=== PATIENT | female | born 1960 | race Caucasian/White ===

== ENCOUNTER 2017-01-15 12:54 | Emergency (ER) | payer OTHER ==
[2017-01-15 13:00] VITALS: TEMP 98
[2017-01-15] MEDS ORDERED: Sodium Chloride 0.9% 1,000 ML IV STA (13:34)
--- NOTE | 2017-01-15 13:48 | ED PDOC ---
Arrival/HPI - General Chief Complaint: Back Pain Time Seen by Provider: 01/15/17 13:04 Historian: Patient - History of Present Illness Narrative History of Present Illness (Text): 01/15/17 13:50 56 year old female, presents to the emergency department complaining of intermittent dizziness with a spinning sensation multiple times associated with nausea. Patient reports to have felt unsteady when walking as if she was going to fall. She has had these symptoms on and off for many years additional to chronic headaches associated with chronic sinus congestions for many years. Patient also complains of lower back pain that worsens with movement and sitting up and also left leg and bilateral ankle pain, also for many years. She reports to never had imagining done before and when she went to a physician in [place] he said the pain was muscular and never did a workup. Patient denies any fever, chills, chest pain, shortness of breath, vomiting, diarrhea, urinary symptoms, neck pain, or any other complaints. PMD: None Symptom Onset: Gradual Symptom Course: Unchanged Activities at Onset: Light Context: Work Past Medical History - Provider Review Nursing Documentation Reviewed: Yes - Infectious Disease Hx of Infectious Diseases: None - Psychiatric Hx Substance Use: No - Surgical History Hx Gastric Bypass Surgery: Yes - Anesthesia Hx Anesthesia: Yes Hx Anesthesia Reactions: No Family/Social History - Physician Review Nursing Documentation Reviewed: Yes Family/Social History: No Known Family HX Smoking Status: Never Smoked Hx Alcohol Use: No Hx Substance Use: No Allergies/Home Meds Allergies/Adverse Reactions: Allergies No Known Allergies Allergy (Verified 01/15/17 12:56) Home Medications: Home Meds Medication Instructions Recorded Confirmed Esomeprazole Magnesium [Nexium 1 tab PO DAILY 01/15/17 01/15/17 24Hr] Review of Systems - Physician Review All systems were reviewed & negative as marked: Yes - Review of Systems Constitutional: absent: Fevers, Other (Chills) ENT: Sinus Congestion (Chronic congestion ) Respiratory: absent: SOB Cardiovascular: absent: Chest Pain Gastrointestinal: Nausea. absent: Diarrhea, Vomiting Genitourinary Female: absent: Dysuria, Frequency, Hematuria Musculoskeletal: Back Pain, Other (left leg and bilaterial ankle pain). absent : Neck Pain Neurological: Headache, Dizziness Physical Exam Vital Signs Reviewed: Yes Vital Signs Temp Pulse Resp BP Pulse Ox 01/15/17 17:00 73 18 143/81 100 10/15/17 15:00 73 18 136/89 100 01/15/17 12:59 98.0 F 84 20 136/89 98 Temperature: Afebrile Blood Pressure: Normal Pulse: Regular Respiratory Rate: Normal Appearance: Positive for: Well-Appearing, Non-Toxic, Other (obese Welsh female) Pain Distress: Mild Mental Status: Positive for: Alert and Oriented X 3 - Systems Exam Head: Present: Atraumatic, Normocephalic Pupils: Present: PERRL Extroacular Muscles: Present: EOMI Conjunctiva: Present: Normal Ears: Present: Normal, NORMAL TM, Normal Canal. No: Erythema Mouth: Present: Moist Mucous Membranes Pharnyx: Present: Normal. No: ERYTHEMA, EXUDATE Neck: Present: Normal Range of Motion Respiratory/Chest: Present: Clear to Auscultation, Good Air Exchange. No: Respiratory Distress, Accessory Muscle Use Cardiovascular: Present: Regular Rate and Rhythm, Normal S1, S2. No: Murmurs Abdomen: Present: Normal Bowel Sounds. No: Tenderness, Distention, Peritoneal Signs Back: Present: Paraspinal Tenderness (Tenderness to palpation bilaterally ), Other (Tenderness ro palpation in the midlumbar spinal region) Upper Extremity: Present: Normal Inspection. No: Cyanosis, Edema Lower Extremity: Present: Normal Inspection, Other (proximal aspect to the left fibula tenderness lateral malleoli, Tenderness bilateral to ankles ). No: Edema Neurological: Present: GCS=15, CN II-XII Intact, Speech Normal, Motor Func Grossly Intact Skin: Present: Warm, Dry, Normal Color. No: Rashes Psychiatric: Present: Alert, Oriented x 3, Normal Insight, Normal Concentration Medical Decision Making ED Course and Treatment: 01/15/17 13:51 Impression: 56 year old male presents complaining of dizziness associated with nausea with additional halfway symptoms of headache, chronic congestion, lower back pain worsen with movement, and left leg and bilateral ankle pain. Plan: -- Brain CT -- Sinuses CT -- EKG -- Ankle Complete 3 Views X-ray -- Ankle Left 3 Views X-ray -- Ankle Right 3 View X-ray -- Tibia Fibula Left X-ray -- Urinalysis -- Labs -- Antivert -- IV Fluids -- Toradol -- Zofran Inj -- Reassess and disposition Progress Notes: EKG shows NSR at 82 BPM with PAC. Normal intervals, normal axis. No ST/T changes. Interpreted by me. PROCEDURE: CT chest dated Dictated: Eric Melton MD Report Date : 01/15/2017 17:06:53 IMPRESSION: There are scattered bilateral upper and lower lobe ground-glass opacities. Rule out air trapping. Rule out pneumonitis. Early mild interstitial edema should be at considered. Atelectatic and or scarring changes both lung bases left greater than right including the left lingular region PROCEDURE: Radiographs of the left tibia and fibula. Dictated: Eric Melton MD Report Date : 01/15/2017 17:25:24 IMPRESSION: No definitive evidence of acute displaced fracture nor dislocation. If symptoms persist or occult fracture suspected clinically consider follow-up radiographs of the left knee. DJD left knee as above PROCEDURE: CT scan sinuses Dictated: Eric Melton MD Report Date : 01/15/2017 15:26:37 IMPRESSION: No evidence of acute sinusitis. Minor mucosal thickening noted within a few ethmoid air cells extending slightly into the inferior margins of the frontal sinuses. Sinus drainage pathways patent PROCEDURE: CT HEAD WITHOUT CONTRAST. Dictated: Eric Melton MD Report Date : 01/15/2017 15:22:54 IMPRESSION: No acute intracranial hemorrhage. . Mild generalized volume loss with more localized moderate bilateral superior frontal cortical atrophic changes. Mild mucosal thickening within the ethmoid and frontal sinuses as detailed above. 01/15/17 18:02 Workup in the ED with no acute findings. EKG is normal and blood work is unremarkable. She reports significant improvement in symptoms with the meds given. She will be ok for d/c on nsaid, muscle relaxant, and meclizine to f/u in the medical clinic. - Lab Interpretations Lab Results: 01/15/17 13:50 01/15/17 13:50 Lab Results 01/15/17 14:00: Urine Color Yellow, Urine Appearance Clear, Urine pH 6.0, Ur Specific [place] 1.020, Urine Protein Negative, Urine Glucose (UA) Negative, Urine Ketones Negative, Urine Blood Negative, Urine Nitrate Negative, Urine Bilirubin Negative, Urine Urobilinogen 0.2, Ur Leukocyte Esterase Negative 01/15/17 13:50: Sodium 144, Potassium 4.3, Chloride 108 H, Carbon Dioxide 25, Anion Gap 15, BUN 19, Creatinine 0.7, Est GFR ( Amer) > 60, Est GFR (Non- Af Amer) > 60, Random Glucose 91, Calcium 9.1, Magnesium 2.1, Total Bilirubin 0.5, AST 23, ALT 25, Alkaline Phosphatase 86, Lactate Dehydrogenase 440, Total Creatine Kinase 42, Troponin I < 0.01, NT-Pro-B Natriuret Pep 33.3, Total Protein 7.2, Albumin 4.3, Globulin 2.8, Albumin/Globulin Ratio 1.5, Lipase 98 01/15/17 13:50: PT 10.6, INR 0.98, APTT 26.4 01/15/17 13:50: WBC 7.3, RBC 4.89, Hgb 12.7, Hct 39.8, MCV 81.4, MCH 26.0, MCHC 31.9, RDW 13.4, Plt Count 259, MPV 11.0, Gran % 48.4 L, Lymph % (Auto) 41.8 H, Gregory % (Auto) 6.8 H, Eos % (Auto) 2.3, Baso % (Auto) 0.7, Gran # 3.55, Lymph # 3.1, Gregory # 0.5, Eos # 0.2, Baso # 0.05 I have reviewed the lab results: Yes - RAD Interpretation Radiology Orders: 01/15/17 13:32 Brain [HEAD W/O CONTRAST] [CT] Stat 01/15/17 13:35 SINUSES W/O CONTRAST [CT] Stat 01/15/17 13:36 ANKLE COMPLETE 3 VIEWS BI [RAD] Stat TIBIA FIBULA LEFT [RAD] Stat 01/15/17 15:11 LUMBAR SPINE W/O CONTRAST [CT] Stat - EKG Interpretation Interpreted by ED Physician: Yes Type: 12 lead EKG - Medication Orders Current Medication Orders: Discontinued Medications Baclofen (Lioresal) 10 mg PO ONCE STA Stop: 01/15/17 15:12 Last Admin: 01/15/17 15:37 Dose: 10 mg Sodium Chloride (Sodium Chloride 0.9%) 1,000 mls @ 999 mls/hr IV .Q1H1M STA Stop: 01/15/17 14:34 Last Admin: 01/15/17 14:14 Dose: 999 mls/hr eMAR Start Stop Document 01/15/17 14:14 CNR (Rec: 01/15/17 14:14 CNR [id number] Intravenous Solution Start Date 01/15/17 Start Time 14:14 Ketorolac Tromethamine (Toradol) 30 mg IVP STAT STA Stop: 01/15/17 13:36 Last Admin: 01/15/17 14:14 Dose: 30 mg MAR Pain Assessment Document 01/15/17 14:14 CNR (Rec: 01/15/17 14:15 CNR [id number] Pain Reassessment Is this a pain reassessment? Yes Sleep Is patient sleeping during reassessment? No Presence of Pain Presence of Pain Yes Pain Scale Used Pain Scale Used Numeric Location Upper or Lower Lower Pain Location Body Site Back Description Description Constant IVP Administration Document 01/15/17 14:14 CNR (Rec: 01/15/17 14:15 CNR [id number] Charges for Administration # of IVP Administrations 1 Meclizine HCl (Antivert) 25 mg PO STAT STA Stop: 01/15/17 13:35 Last Admin: 01/15/17 14:14 Dose: 25 mg Ondansetron HCl (Zofran Inj) 4 mg IVP STAT STA Stop: 01/15/17 13:36 Last Admin: 01/15/17 14:15 Dose: 4 mg IVP Administration Document 01/15/17 14:15 CNR (Rec: 01/15/17 14:15 CNR [id number]) Charges for Administration # of IVP Administrations 1 - Scribe Statement The provider has reviewed the documentation as recorded by the Scribdavid Resendiz All medical record entries made by the Gregibdavid were at my direction and personally dictated by me. I have reviewed the chart and agree that the record accurately reflects my personal performance of the history, physical exam, medical decision making, and the department course for this patient. I have also personally directed, reviewed, and agree with the discharge instructions and disposition. Disposition/Present on Arrival - Present on Arrival Any Indicators Present on Arrival: No History of DVT/PE: No History of Uncontrolled Diabetes: No Urinary Catheter: No History of Decub. Ulcer: No History Surgical Site Infection Following: None - Disposition Have Diagnosis and Disposition been Completed?: Yes Diagnosis: Vertigo, Low back pain, Bilateral ankle pain, Leg pain, Spondylosis Disposition: HOME/ ROUTINE Disposition Time: 17:20 Patient Plan: Discharge Condition: GOOD Discharge Instructions (ExitCare): Meniere Disease (ED), Vertigo (ED), Lumbar Spinal Stenosis (ED), Neck Exercises (GEN), Degenerative Disc Disease (ED), Back Exercises (ED) Additional Instructions: Take the medications as prescribed. Follow up with the medical clinic. Return to the emergency department if any new concerning symptoms. Prescriptions: Baclofen [Lioresal] 1 cap PO TID PRN #20 tab PRN Reason: Pain, Moderate (4-7) Meclizine HCl 1 tab PO Q8H PRN #30 tablet PRN Reason: Dizziness Naproxen [Naprosyn] 500 mg PO BID PRN #30 tab PRN Reason: Pain Referrals: [facility] [Outside] - Follow up with primary Forms: [facility] (Martiniquais)
[2017-01-15 14:06] LABS: BASO # 0.05 K/mm3 (0.0-2.0); BASO % 0.7 % (0.0-3.0); EOS # 0.2 (0.0-0.7); EOS % 2.3 % (1.5-5.0); GRAN # 3.55 (1.4-6.5); GRAN % 48.4 % (50.0-68.0); HEMATOCRIT 39.8 % (36.0-48.0); LYMPH # 3.1 (1.2-3.4); LYMPH % 41.8 % (22.0-35.0); MEAN CELL VOLUME 81.4 fl (80.0-105.0); MEAN CORPUSCULAR HGB CONC 31.9 g/dl (31.0-37.0); MONO # 0.5 (0.1-0.6); MONO % 6.8 % (1.0-6.0); RED CELL DISTRIBUTION WIDTH 13.4 % (11.5-14.5); WHITE BLOOD COUNT 7.3 10^3/ul (4.5-11.0)
[2017-01-15 14:15] LABS: URINE BILIRUBIN NEGATIVE (NEGATIVE); URINE BLOOD NEGATIVE (NEGATIVE); URINE GLUCOSE (UA) NEGATIVE (NEGATIVE); URINE KETONE NEGATIVE (NEGATIVE); URINE PROTEIN NEGATIVE mg/dL (<30 mg/dL); URINE UROBILINOGEN 0.2 E.U./dL (<1 E.U./dL)
[2017-01-15 14:16] LABS: URINE APPEARANCE CLEAR (CLEAR); URINE COLOR YELLOW (YELLOW); URINE LEUKOCYTE ESTERASE NEGATIVE Leu/uL (NEGATIVE)
[2017-01-15 14:18] LABS: INR 0.98 (0.93-1.08); PARTIAL THROMBOPLASTIN TIME 26.4 Seconds (23.7-30.8)
[2017-01-15 14:23] LABS: ALB/GLOB RATIO 1.5 (1.1-1.8); ALKALINE PHOSPHATASE 86 U/L (38-126); ALT/SGPT 25 U/L (7-56); AST/SGOT 23 U/L (14-36); BILIRUBIN,TOTAL 0.5 mg/dL (0.2-1.3); BLOOD UREA NITROGEN 19 mg/dL (7-21); CALCIUM 9.1 mg/dL (8.4-10.5); CARBON DIOXIDE 25 mmol/L (21-33); CHLORIDE 108 mmol/L (98-107); GFR AFRICAN-AMERICAN > 60; GLUCOSE,RANDOM 91 mg/dL (70-110); LIPASE 98 U/L (23-300); MAGNESIUM 2.1 mg/dL (1.7-2.2); POTASSIUM 4.3 mmol/L (3.6-5.0); SODIUM 144 mmol/L (132-148); TOTAL PROTEIN 7.2 g/dL (5.8-8.3)
[2017-01-15 14:36] LABS: TROPONIN I < 0.01 ng/mL
[2017-01-15 15:04] VITALS: PULSE 73; RESP 18; O2SAT 100
--- NOTE | 2017-01-15 15:24 | CT ---
PROCEDURE: CT HEAD WITHOUT CONTRAST. HISTORY: dizzy COMPARISON: Comparison made with concurrent CT scan of the sinuses. TECHNIQUE: Axial computed tomography images were obtained through the head/brain without intravenous contrast. Radiation dose: Total exam DLP = 775.01 mGy-cm. This CT exam was performed using one or more of the following dose reduction techniques: Automated exposure control, adjustment of the mA and/or kV according to patient size, and/or use of iterative reconstruction technique. FINDINGS: HEMORRHAGE: No acute parenchymal, subarachnoid or extra-axial hemorrhage. Hemorrhage. BRAIN: No evidence of large acute infarct. No obvious parenchymal nor extra-axial mass or collection identified on this noncontrast study. Mild generalized volume loss with more localized moderate bilateral superior frontal cortical atrophic changes. VENTRICLES: No evidence of obstructive hydrocephalus. CALVARIUM: Unremarkable. PARANASAL SINUSES: No fluid levels seen to suggest acute sinusitis. The Mild mucosal thickening seen within the ethmoid sinuses extending superiorly into the inferior margins of the frontal sinus. MASTOID AIR CELLS: Unremarkable as visualized. No inflammatory changes. OTHER FINDINGS: None. IMPRESSION: No acute intracranial hemorrhage. . Mild generalized volume loss with more localized moderate bilateral superior frontal cortical atrophic changes. Mild mucosal thickening within the ethmoid and frontal sinuses as detailed above.
--- NOTE | 2017-01-15 15:28 | CT ---
PROCEDURE: CT scan sinuses dated 01/15/2017 HISTORY: Headache, dizzy, sinus congestion COMPARISON: Correlation made with concurrent CT scan brain TECHNIQUE: Total exam DLP = 281.33 mGy-cm. FINDINGS: Mild mucosal thickening seen within several anterior superior ethmoid air cells extending superiorly into the inferior margins of the frontal sinus. The remaining sinuses are relatively clear. No fluid levels seen to suggest acute sinusitis. Ostiomeatal complexes, frontal and sphenoid ethmoidal recesses are patent Osseous structures appear intact with no sclerotic or destructive changes. Orbits and contents unremarkable. Incidental note made of what appears represent partially empty sella IMPRESSION: No evidence of acute sinusitis. Minor mucosal thickening noted within a few ethmoid air cells extending slightly into the inferior margins of the frontal sinuses. Sinus drainage pathways patent.
--- NOTE | 2017-01-15 16:59 | CT ---
PROCEDURE: CT Lumbar Spine without contrast HISTORY: low back pain, leg pain COMPARISON: No prior study available for comparison TECHNIQUE: Axial computed tomography images were obtained of the lumbar spine without the use of intravenous contrast. Coronal and sagittal reformatted images were created and reviewed. Radiation dose: Total exam DLP = 973.26 mGy-cm. This CT exam was performed using one or more of the following dose reduction techniques: Automated exposure control, adjustment of the mA and/or kV according to patient size, and/or use of iterative reconstruction technique. FINDINGS: VERTEBRAE: Current study reveals no acute compression fractures nor retropulsed fragments. Vertebral bodies exhibit normal stature. Vertebral bodies and facets normally aligned. DISCS/SPINAL CANAL/NEURAL FORAMINA: L1-2: Disc space height maintained. No disc herniation however some very minimal asymmetric broad-based disc bulge results some flattening the ventral surface of the thecal sac more so on the right. . Facets are slightly prominent. Central canal and exit foramina adequate. . L2-3: Mild disc space narrowing with small broad-based disc bulge ridge complex that results some flattening of the ventral surface of thecal sac. Facet joints are slightly prominent. Central canal and exit foramina appear adequate. . L3-4: Mild disc space narrowing with small broad-based disc ridge complex also results in flattening of the ventral surface of the thecal sac. Some minimal extension into the proximal inferior margins of both exit foramina more so on the left. Facets slightly hypertrophic. Central canal and exit foramina adequate. . L4-5: Disc space narrowing with vacuum disc phenomena. Small broad-based disc ridge complex extends slightly into the proximal inferior margins of both exit foramina more so on the right. Hypertrophic facets noted as well. There is mild moderate bilateral lateral recess and central canal stenosis. Proximal right exit foramen is slightly narrowed. Left exit foramen adequate L5-S1: Minor posterior disc space narrowing. Small broad-based disc ridge complex also results in minimal flattening of the ventral surface of thecal sac. Facets are hypertrophic right greater than left. Central canal and exit foramina adequate. . Sclerotic changes both SI joints PARASPINAL SOFT TISSUES: Unremarkable. OTHER FINDINGS: Metallic clips right upper quadrant of the abdomen consistent with prior cholecystectomy IMPRESSION: No acute fractures. Mild multilevel degenerative spondylosis most notably affecting the L4-L5 level as above
--- NOTE | 2017-01-15 17:26 | RAD ---
PROCEDURE: Radiographs of the left tibia and fibula. HISTORY: Proximal lateral fibular shaft ttp COMPARISON: None available. TECHNIQUE: Frontal and lateral views obtained. FINDINGS: BONES: No definitive evidence of acute displaced fracture nor dislocation. The osseous structures appear intact so far as can be seen. If symptoms persist or occult fracture suspected clinically recommend dedicated followup radiographs of the left knee. JOINT SPACES: There appears to be degenerative changes of the left knee particularly the lateral compartment with joint space narrowing and lateral marginal osteophyte formation. OTHER FINDINGS: None. IMPRESSION: No definitive evidence of acute displaced fracture nor dislocation. If symptoms persist or occult fracture suspected clinically consider follow-up radiographs of the left knee. DJD left knee as above
[2017-01-15 17:35] VITALS: BP 143/81
--- NOTE | 2017-01-15 18:04 | RAD ---
PROCEDURE: Bilateral ankles dated 01/15/2017 HISTORY: b/L ankle pain and swelling COMPARISON: No prior study available for comparison TECHNIQUE: Three standard views of the right and left ankles performed FINDINGS: No evidence of acute displaced fracture nor dislocation. The osseous structures appear including talar dome appear intact. Mild degenerative changes of the left ankle most notably affecting the lateral margin of the ankle mortise with spurring/osteophyte formation arising from the inferior margin of the fibula. Diffuse bilateral soft tissue swelling nonspecific IMPRESSION: No acute fractures. See above discussion for additional details and findings
--- NOTE | 2017-01-16 12:23 | CARD ---
APPROVED REPORT EKG Measurement Heart [id number] <Conclusion> Sinus rhythm with premature atrial complexes Otherwise normal ECG
== END 2017-01-15 17:35 | disposition home or self-care (01) ==
LOC: ED 12:54
DX: M54.5 Low back pain (principal); R42 Dizziness and giddiness; M25.572 Pain in left ankle and joints of left foot; M25.571 Pain in right ankle and joints of right foot; M47.816 Spondylosis without myelopathy or radiculopathy, lumbar region; M79.605 Pain in left leg; Z98.84 Bariatric surgery status
CPT/HCPCS: 70450; 70486; 72131; 73590; 73610; 80053; 81003; 82550; 83615; 83690; 83735; 83880; 84484; 85025; 85610; 85730; 93005; 96374; 96375; 99284; J1885; J2405; J7040

== ENCOUNTER 2017-12-05 08:37 | Emergency (ER) | payer MEDICAID, OTHER ==
[2017-12-05 09:18] VITALS: RESP 18; TEMP 98.5; O2SAT 100
--- NOTE | 2017-12-05 09:55 | ED PDOC ---
Arrival/HPI - General Chief Complaint: Lower Extremity Problem/Injury Time Seen by Provider: 12/05/17 09:36 Historian: Patient - History of Present Illness Narrative History of Present Illness (Text): 12/05/17 09:38 57 y/o female, pmh including gastritis/rt. 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 lower extremity itching/warmth and pain x 10-15 days with no new injury or fall. Pt. stated that she had similar episode before, relief with augmentin, unable to see Dr. Camara today so she came to the ER for evaluation. Pt. stated that she has no fever or chills, eating and drinking well, no change in appetize or energy level, no night sweat, no numbness or tingling, no chest pain or shortness of breath, no other medical or psychological complaints. Past Medical History - Provider Review Nursing Documentation Reviewed: Yes - Infectious Disease Hx of Infectious Diseases: None - Psychiatric Hx Substance Use: No - Surgical History Hx Gastric Bypass Surgery: Yes - Anesthesia Hx Anesthesia: Yes Hx Anesthesia Reactions: No Hx Malignant Hyperthermia: No Family/Social History - Physician Review Nursing Documentation Reviewed: Yes Family/Social History: Unknown Family HX Smoking Status: Never Smoked Hx Alcohol Use: No Hx Substance Use: No Allergies/Home Meds Allergies/Adverse Reactions: Allergies No Known Allergies Allergy (Verified 01/15/17 12:56) Home Medications: Home Meds Medication Instructions Recorded Confirmed Esomeprazole Magnesium [Nexium 1 tab PO DAILY 01/15/17 01/15/17 24Hr] Review of Systems - Review of Systems Constitutional: absent: Fatigue, Fevers Eyes: absent: Vision Changes ENT: absent: Hearing Changes Respiratory: absent: SOB, Cough Cardiovascular: absent: Chest Pain Gastrointestinal: absent: Abdominal Pain, Nausea, Vomiting Skin: Rash, Pruritis, Skin Lesions, Cellulitis. absent: Laceration, Abscess, Ulcer Neurological: absent: Headache, Dizziness Psychiatric: absent: Anxiety, Depression, Suicidal Ideation Physical Exam Vital Signs Reviewed: Yes Vital Signs Temp Pulse Resp BP Pulse Ox 12/05/17 08:38 98.5 F 80 18 130/78 100 Temperature: Afebrile Blood Pressure: Normal Pulse: Regular Respiratory Rate: Normal Appearance: Positive for: Well-Appearing, Non-Toxic, Comfortable Pain Distress: Mild Mental Status: Positive for: Alert and Oriented X 3 - Systems Exam Head: Present: Atraumatic, Normocephalic Pupils: Present: PERRL Extroacular Muscles: Present: EOMI Conjunctiva: Present: Normal Mouth: Present: Moist Mucous Membranes Neck: Present: Normal Range of Motion Respiratory/Chest: Present: Clear to Auscultation, Good Air Exchange. No: Respiratory Distress, Accessory Muscle Use Cardiovascular: Present: Regular Rate and Rhythm, Normal S1, S2. No: Murmurs Abdomen: No: Tenderness, Distention, Peritoneal Signs Back: Present: Normal Inspection Upper Extremity: Present: Normal Inspection. No: Cyanosis, Edema Lower Extremity: Present: Normal Inspection, Other (Bilateral LE: rt. anterior pierson noted to have mild pinkish color appear to be early cellulitis with skin marked by me with approx. [id number] without streaking or ulcers plus no circumferential coverage as well, no fluctuant abscess noted, no pedal edema, no skin discoloration other then decribed with pink color, FROM without limitation, sensation intact, motor 5/5, +DPPT pulses, capillary refill< 2 seconds, neurovascular intact. ). No: Edema Neurological: Present: GCS=15, CN II-XII Intact, Speech Normal Skin: Present: Warm, Dry, Normal Color. No: Rashes Psychiatric: Present: Alert, Oriented x 3, Normal Insight, Normal Concentration Medical Decision Making ED Course and Treatment: 12/05/17 10:04 Cellulitis vs. Dermatitis vs. DVT -CBC -Augmentin/benadryl/tylenol -LE Venuous doppler -Observe and reassess 12/05/17 11:27 -Urine hcg is negative -Labs show no acute findings -Bilateral LE venuous doppler: as per preliminary report, no acute DVT -Pain decreased, feeling well, stable for outpatient oral antibiotic. -Discharge home with augmentin, claritin, topical steroid cream, follow up with your own pmd within 3 days for follow up, return to the Er for any new or worsening signs or symptoms. - Lab Interpretations Lab Results: 12/05/17 10:30 12/05/17 10:30 Lab Results 12/05/17 10:30: Sodium 142, Potassium 4.8, Chloride 103, Carbon Dioxide 28, Anion Gap 15, BUN 16, Creatinine 0.5 L, Est GFR ( Amer) > 60, Est GFR ( Non-Af Amer) > 60, Random Glucose 95, Calcium 9.5, Total Bilirubin 0.5, AST 16, ALT 20, Alkaline Phosphatase 80, Total Protein 7.2, Albumin 4.2, Globulin 2.9, Albumin/Globulin Ratio 1.4 12/05/17 10:30: WBC 7.4, RBC 5.05, Hgb 13.0, Hct 40.3, MCV 79.8 L, MCH 25.7, MCHC 32.3, RDW 13.4, Plt Count 258, MPV 10.9, Gran % 45.5 L, Lymph % (Auto) 44.1 H, [place] % (Auto) 6.5 H, Eos % (Auto) 3.2, Baso % (Auto) 0.7, Gran # 3.37, Lymph # (Auto) 3.3, [place] # (Auto) 0.5, Eos # (Auto) 0.2, Baso # (Auto) 0.05 I have reviewed the lab results: Yes - RAD Interpretation Radiology Orders: 12/05/17 09:56 DUPLEX LOWER EXTRM VEIN BILAT [US] Stat -Bilateral LE venuous doppler: as per preliminary report, no acute DVT Audio/Visual Operator: Radiologist - Medication Orders Current Medication Orders: Discontinued Medications Acetaminophen (Tylenol 325mg Tab) 650 mg PO STAT STA Stop: 12/05/17 10:03 Last Admin: 12/05/17 10:28 Dose: 650 mg MAR Pain/Vitals Document 12/05/17 10:28 EQ (Rec: 12/05/17 10:28 EQ [email or web address]) Pain Reassessment Is This A Pain ReAssessment? No Sleep Is patient sleeping during reassessment? 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 Disposition/Present on Arrival - Present on Arrival Any Indicators Present on Arrival: No History of DVT/PE: No History of Uncontrolled Diabetes: No Urinary Catheter: No History of Decub. Ulcer: No History Surgical Site Infection Following: None - Disposition Have Diagnosis and Disposition been Completed?: Yes Diagnosis: Cellulitis, Dermatitis Disposition: HOME/ ROUTINE Disposition Time: 11:27 Patient Plan: Discharge Patient Problems: Current Active Problems Problem Status Onset Cellulitis Acute Condition: IMPROVED Discharge Instructions (ExitCare): Cellulitis (ED) Additional Instructions: -Discharge home with augmentin, claritin, topical steroid cream, take over the counter tylenol for pain as needed, follow up with your own pmd within 3 days for follow up, return to the Er for any new or worsening signs or symptoms. Prescriptions: Amoxicillin/Clavulanate [Augmentin 875 MG-125 MG] 1 tab PO BID #20 tab Hydrocortisone 1% Cream [Cortizone 1% Cream] 1 applic TOP BID #30 g Loratadine [Claritin] 10 mg PO DAILY #10 tab Referrals: Megan Camara MD [Primary Care Provider] - Follow up with primary Forms: [facility] (Chinese), WORK NOTE
[2017-12-05] MEDS ORDERED: Amoxicillin-Clav 875-125 mg Tab PO STA (09:57)
[2017-12-05] MEDS ORDERED: DiphenhydrAMINE 12.5 mg/5 ml LIQ UD (5 ml) PO STA (09:57)
[2017-12-05 10:38] LABS: BASO % 0.7 % (0.0-3.0); EOS % 3.2 % (1.5-5.0); GRAN % 45.5 % (50.0-68.0); LYMPH % 44.1 % (22.0-35.0); MEAN CELL VOLUME 79.8 fl (80.0-105.0); MEAN CORPUSCULAR HEMOGLOBIN 25.7 pg (25.0-35.0); MEAN CORPUSCULAR HGB CONC 32.3 g/dl (31.0-37.0); MEAN PLATELET VOLUME 10.9 fl (7.0-11.0); MONO % 6.5 % (1.0-6.0); RBC 5.05 10^6/uL (3.5-6.1); RED CELL DISTRIBUTION WIDTH 13.4 % (11.5-14.5); WHITE BLOOD COUNT 7.4 10^3/ul (4.5-11.0)
[2017-12-05 10:39] LABS: BASO # 0.05 K/mm3 (0.0-2.0); EOS # 0.2 (0.0-0.7); GRAN # 3.37 (1.4-6.5); LYMPH # 3.3 (1.2-3.4); MONO # 0.5 (0.1-0.6)
[2017-12-05 10:56] LABS: ALB/GLOB RATIO 1.4 (1.1-1.8); ALBUMIN 4.2 g/dL (3.0-4.8); ALT/SGPT 20 U/L (7-56); AST/SGOT 16 U/L (14-36); BLOOD UREA NITROGEN 16 mg/dL (7-21); CALCIUM 9.5 mg/dL (8.4-10.5); GFR NON-AFRICAN AMERICAN > 60
[2017-12-05 12:25] VITALS: BP 129/71; PULSE 77
--- NOTE | 2017-12-05 14:59 | US ---
HISTORY: Leg pain and swelling. Evaluate for DVT PHYSICIAN(S): Dick Raymond MD. TECHNIQUE: Duplex sonography and color-flow Doppler with graded compression were used to evaluate the deep venous systems of both lower extremities. FINDINGS: The visualized deep venous systems of both lower extremities are sonographically normal and compressible. Normal wave forms and augmentation are seen. There is no sonographic evidence for deep venous thrombosis in the visualized segments of both lower extremities. IMPRESSION: No sonographic evidence for deep venous thrombosis in the visualized segments of both lower extremities.
== END 2017-12-05 12:24 | disposition home or self-care (01) ==
LOC: ED 08:37
DX: L30.9 Dermatitis, unspecified (principal); L03.115 Cellulitis of right lower limb